=== PATIENT | male | born 1980 | race Caucasian/White ===

== ENCOUNTER 2017-06-20 10:08 | Day surgery (SDC) | payer OTHER ==
[~2017-06-20] VITALS: Ht 190.5 cm; Wt 121.8 kg
[2017-06-20 11:01] VITALS: BP 148/88
[2017-06-20] MEDS ORDERED: DICL50TA2 PO (11:01)
[2017-06-20 11:05] LABS: BASOPHILS # (AUTO) 0.02 x10^3/uL (0-0.1); BASOPHILS % (AUTO) 0 % (0-1); EOSINOPHILS # (AUTO) 0.55 x10^3/uL (0-0.4); EOSINOPHILS % (AUTO) 8 % (1-7); LYMPHOCYTES # (AUTO) 1.84 x10^3/uL (1-3.4); LYMPHOCYTES % (AUTO) 25 % (22-44); MD NO; MEAN CORPUSCULAR HEMOGLOBIN 31.3 pg (27.5-34.5); MEAN CORPUSCULAR HGB CONC 34.1 g/dL (33.2-36.2); MEAN CORPUSCULAR VOLUME 91.8 fL (81-97); MEAN PLATELET VOLUME 9.5 fL (7.4-10.4); MONOCYTES % (AUTO) 8 % (2-9); NEUTROPHILS # (AUTO) 4.29 x10^3/uL (1.8-6.8); NEUTROPHILS % (AUTO) 59 % (42-75); PLATELET COUNT 252 x10^3/uL (130-400); RED BLOOD COUNT 5.16 x10^6/uL (4.38-5.82); RED CELL DISTRIBUTION WIDTH 13.8 % (9.4-14.8)
[2017-06-20 11:18] LABS: ALANINE AMINOTRANSFERASE 53 U/L (12-78); ALBUMIN 4.2 g/dL (3.4-5.0); ANION GAP 6 mmol/L (5-15); CHLORIDE 106 mmol/L (98-107); CREATININE 1.09 mg/dL (0.7-1.3)
[2017-06-20 11:20] LABS: ALKALINE PHOSPHATASE 94 U/L (45-117); TOTAL PROTEIN 8.3 g/dL (6.4-8.2)
[2017-06-20] MEDS ORDERED: LACTATED RINGERS 1,000 ML IV SCH (11:20)
[2017-06-20 11:22] LABS: INTERNATIONAL NORMALIZED RATIO 1.07 (0.93-1.1); PROTHROMBIN TIME 11.1 Seconds (9.6-11.5)
[2017-06-20] MEDS ORDERED: BUPIVACAINE/PF 0.5% ONE (12:23)
[2017-06-20] MEDS ORDERED: BACITRACIN 50,000 UNIT ONE (12:23)
[2017-06-20] MEDS ORDERED: VANCOMYCIN 1,000 MG ONE (12:23)
[2017-06-20] MEDS ORDERED: EPINEPHRINE 1 MG/ML, 1ML ONE (12:23)
[2017-06-20] MEDS ORDERED: MIDAZOLAM 1 MG/ML, 2ML ONE (12:34)
[2017-06-20] MEDS ORDERED: FENTANYL PF 100 MCG/2ML ONE (12:34)
[2017-06-20] MEDS ORDERED: BUPIVACAINE/PF 0.25% INFIL ONE (14:00)
[2017-06-20] MEDS ORDERED: BUPIVACAINE/PF 0.25% ONE (14:55)
[2017-06-20] MEDS ORDERED: FENTANYL PF 100 MCG/2ML IV PRN (15:00)
[2017-06-20] MEDS ORDERED: PROMETHAZINE 25 MG/ML, 1ML IV PRN (15:00)
[2017-06-20] MEDS ORDERED: OXYcodone 5 MG/5 ML ORAL.SOL UDC PO PRN (15:00)
[2017-06-20] MEDS ORDERED: ACETAMINOPHEN 325 MG TABLET PO PRN (15:00)
[2017-06-20] MEDS ORDERED: MEPERIDINE/PF 25MG/0.5ML IVPush PRN (15:00)
[2017-06-20] MEDS ORDERED: OXYcodone 5 MG/5 ML ORAL.SOL UDC ONE (15:19)
[2017-06-20] MEDS ORDERED: ACETAMINOPHEN 650 MG/20.3 ML UDC ONE (15:19)
[2017-06-20] MEDS ORDERED: PROPOFOL 10 MG/ML, 20ML ONE (15:37)
[2017-06-20] MEDS ORDERED: CEFAZOLIN 1,000 MG ONE (15:37)
[2017-06-20] MEDS ORDERED: DEXAMETHASONE 4 MG/ML, 1ML ONE (15:37)
[2017-06-20] MEDS ORDERED: ONDANSETRON 2MG/ML, 2ML ONE (15:37)
== END 2017-06-20 17:40 ==
LOC: OUT 10:08
PROVIDERS: ATTEND Urology
DX: N36.0 Urethral fistula (principal); J45.909 Unspecified asthma, uncomplicated; Z98.890 Other specified postprocedural states; Z88.8 Allergy status to other drugs, medicaments and biological substances
CPT/HCPCS: 36415; 53520; 80053; 85025; 85610; 85730; 93005; J0171; J0690; J1100; J2250; J2405; J2704; J3010; J3490; J7120; J3370

== ENCOUNTER 2017-09-23 16:48 | Emergency (ER) | payer OTHER ==
[~2017-09-23] VITALS: Ht 190.5 cm; Wt 113.2 kg
[~2017-09-23 16:48] MED LIST: DICL50TA2 PO
[2017-09-23 16:55] VITALS: BP 135/70
[2017-09-23] MEDS ORDERED: DIPHTHERIA-TETANUS ADULT 0.5ML IM-VACC ONE (17:30)
[2017-09-23] MEDS ORDERED: LIDOCAINE-MPF 1%, 5ML INFIL ONE (17:30)
[2017-09-23] MEDS ORDERED: LIDOCAINE-MPF 2% ,5ML ONE (18:06)
== END 2017-09-23 18:49 | disposition home or self-care (01) ==
LOC: ED 18:22
DX: S01.511A Laceration without foreign body of lip, initial encounter (principal); W22.09XA Striking against other stationary object, initial encounter; Y93.12 Activity, springboard and platform diving; Y99.8 Other external cause status; Y92.89 Other specified places as the place of occurrence of the external cause
CPT/HCPCS: 12051; 70450; 70486; 99284